=== PATIENT | male | born 1985 | race American Indian/Alaskan Native ===

== ENCOUNTER 2021-04-30 06:08 | Emergency (ER) | payer OTHER ==
[2021-04-30 06:30] VITALS: BP 131/86
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
== END 2021-04-30 08:43 | disposition home or self-care (01) ==
LOC: ED 06:08
DX: M79.602 Pain in left arm (principal); V87.7XXA Person injured in collision between other specified motor vehicles (traffic), initial encounter; Y93.89 Activity, other specified; Y92.488 Other paved roadways as the place of occurrence of the external cause; Y99.8 Other external cause status
CPT/HCPCS: 99283